=== PATIENT | male | born 1995 | race Hispanic/Latino ===

== ENCOUNTER 2018-07-26 14:46 | Emergency (ER) | payer SELFPAY ==
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
[2018-07-26] MEDS ORDERED: ACETAMINOPHEN 325 MG TABLET ONE (17:12)
== END 2018-07-26 17:10 | disposition home or self-care (01) ==
LOC: ER 14:46
DX: S01.01XA Laceration without foreign body of scalp, initial encounter (principal); Y09 Assault by unspecified means; Y93.9 Activity, unspecified; Y92.9 Unspecified place or not applicable; Z72.0 Tobacco use
CPT/HCPCS: 70450; 70486; 72125; 76377; 99284

== ENCOUNTER 2018-10-12 00:38 | Emergency (ER) | payer SELFPAY ==
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
== END 2018-10-12 02:10 | disposition home or self-care (01) ==
LOC: ER 00:38
DX: S01.01XA Laceration without foreign body of scalp, initial encounter (principal); Y04.0XXA Assault by unarmed brawl or fight, initial encounter; M54.2 Cervicalgia; J45.909 Unspecified asthma, uncomplicated
CPT/HCPCS: 70450; 70486; 72125; 76377; 99284